=== PATIENT | female | born 1970 | race African-American/Black ===

== ENCOUNTER 2023-09-21 10:26 | Emergency (ER) | payer BC, OTHER ==
[2023-09-21 11:05] VITALS: BP 158/87; PULSE 92; RESP 18; TEMP 98.4; BMI 35.6
== END 2023-09-21 11:52 | disposition home or self-care (01) ==
LOC: FER 10:26
DX: R04.0 Epistaxis (principal); I10 Essential (primary) hypertension; R51.9 Headache, unspecified; J34.89 Other specified disorders of nose and nasal sinuses; Z20.822 Contact with and (suspected) exposure to COVID-19
CPT/HCPCS: 0241U-QW; 99283-25